=== PATIENT | male | born 1990 | race Caucasian/White ===

== ENCOUNTER 2020-03-13 16:10 | Outpatient (REF) | payer SELFPAY ==
[2020-03-14 05:04] LABS: SARS COV2 IgG Negative (Negative)
== END 2020-03-13 16:11 | disposition home or self-care (01) ==
LOC: HO.LNC 16:10
PROVIDERS: Visit Provider Pathology Anatomic Pathology & Clinical Pathology
DX: Z20.828 Contact with and (suspected) exposure to other viral communicable diseases (principal)
CPT/HCPCS: 86769